=== PATIENT | female | born 1935 | race Caucasian/White ===

== ENCOUNTER 2017-04-22 12:45 | Outpatient (CLI) | payer MEDICARE, OTHER | END 2017-04-22 12:46 | disposition home or self-care (01) | LOC: DI 12:45 | PROVIDERS: ATTEND Internal Medicine | DX: R94.31 Abnormal electrocardiogram [ECG] [EKG] (principal) | CPT/HCPCS: 93306 ==

== ENCOUNTER 2017-04-24 12:45 | Outpatient (CLI) | payer MEDICARE, OTHER ==
--- NOTE | 2017-04-24 16:23 | DEXA Report ---
DEXA SCAN: 04/24/2017 CLINICAL INDICATION: Postmenopausal. TECHNIQUE: Dual energy x-ray absorptiometry (DXA) was performed on a Motorpaneer system. Regions measured are the AP spine, femoral neck, and, if needed, forearm. COMPARISON: None. In accordance with the International Society for Clinical Densitometry (ISCD) guidelines, data from previous exams may be reanalyzed using current recommendations andtechniques. This is done to allow a more accurate basis for comparison with the current study. FINDINGS: The data for the lumbar spine is as follows: REGION BMD (g/cm/cm) T-SCORE Z-SCORE L1 1.110 -0.2 1.4 L2 1.343 1.2 2.8 L3 1.491 2.4 4.0 L4 1.405 1.7 3.3 TOTAL 1.352 1.4 3.0 NOTE: All evaluable vertebrae are used for classification. The data for the hip is as follows: REGION BMD (g/cm/cm) T-SCORE Z-SCORE Neck 0.983 -0.4 1.6 TOTAL 0.984 -0.2 1.7 NOTE: The femoral neck or total proximal femur, whichever is lowest, is used for classification. IMPRESSION THE WHO CLASSIFICATION BASED ON THE INTERNATIONAL REFERENCE STANDARD IS NORMAL. THE FRACTURE RISK IS NOT INCREASED. RECOMMENDATION: Patients with diagnosis of osteoporosis or osteopenia should have regular bone mineral density assessment. For those eligible for Medicare, routine testing is allowed once every 2 years. Testing frequency can be increased for patients who have rapidly progressing disease or for those who are receiving medical therapy to restore bone mass. COMMENT: World Health Organization (WHO) definitions for osteoporosis and osteopenia: NORMAL BMD: T-score at 1.0 or higher, fracture risk is low. OSTEOPENIA BMD: T-score between 1.0 and -2.5, fracture risk is increased. OSTEOPOROSIS BMD: T-score at 2.5 or lower, fracture risk high. National Osteoporosis Foundation recommends: 1. Obtain adequate dietary calcium (at least 1200 mg per day) and vitamin D (400 -800 international units per day). 2. Participate, as appropriate, in regular weightbearing and muscle- strengthening exercise. 3. Avoid tobacco use and reduce alcohol and caffeine intake. 4. For more detailed information see the website at www.NOF.org. TD: 04/24/2017 16:54 MTDMed
== END 2017-04-24 12:46 | disposition home or self-care (01) ==
LOC: DI 12:45
PROVIDERS: ATTEND Internal Medicine
DX: M81.0 Age-related osteoporosis without current pathological fracture (principal)
CPT/HCPCS: 77080

== ENCOUNTER 2017-04-24 12:46 | Outpatient (CLI) | payer MEDICARE, OTHER ==
--- NOTE | 2017-04-25 15:59 | Mammography Report ---
DATE OF SERVICE: 04/24/2017 DIGITAL SCREENING MAMMOGRAM: 04/24/2017 CLINICAL INDICATION: An 81-year-old for screening. COMPARISON: 05/2014, 01/2013, 12/2011, 11/2010. TECHNIQUE: Routine CC and MLO projections were obtained of the breasts. FINDINGS: Scattered fibroglandular tissue is present within the breasts. There are no dominant masses, suspicious microcalcifications, or secondary signs of malignancy. In comparison to the previous studies, there are no significant changes. ASSESSMENT: NO MAMMOGRAPHIC EVIDENCE OF MALIGNANCY. NO SIGNIFICANT INTERVAL CHANGES. RECOMMENDATION: Screening mammography is recommended annually. BIRADS category 1 - negative. STANDARD QUALIFYING STATEMENTS: 1. This examination was reviewed with the aid of Computed-Aided Detection (CAD). 2. A negative or benign imaging report should not delay biopsy if clinically suspicious findings are present. Consider surgical consultation if warranted. More than 5% of cancers are not identified by imaging. 3. Dense breasts may obscure an underlying neoplasm. TD: 04/25/2017 15:58
== END 2017-04-24 12:47 | disposition home or self-care (01) ==
LOC: DI 12:46
PROVIDERS: ATTEND Internal Medicine
DX: Z12.31 Encounter for screening mammogram for malignant neoplasm of breast (principal)
CPT/HCPCS: 77067

== ENCOUNTER 2018-01-01 15:08 | Outpatient (CLI) | payer MEDICARE, OTHER ==
--- NOTE | 2018-01-01 16:14 | XRAY Report ---
Reason: COUGH Procedure Date: 01/01/2018 Accession Number: [id number] / [id number] Procedure: XR - Chest 2 View X-Ray CPT Code: 25161 FULL RESULT: EXAM: CHEST RADIOGRAPHY EXAM DATE: 01/01/2018 03:23 PM. CLINICAL HISTORY: Cough. COMPARISON: Chest 1 view 04/04/2017 11:00 AM. TECHNIQUE: 2 views. FINDINGS: Increased interstitial pulmonary markings compared to 04/04/2017. The cardiomediastinal silhouette is stable. There is no sizable pleural effusion or pneumothorax. There is no lobar consolidation. IMPRESSION: Increased interstitial markings in the setting of known lung disease. No definite superimposed lobar pneumonia. RADIA
== END 2018-01-01 15:09 | disposition home or self-care (01) ==
LOC: DI 15:08
PROVIDERS: ATTEND Internal Medicine
DX: J84.9 Interstitial pulmonary disease, unspecified (principal)
CPT/HCPCS: 71046

== ENCOUNTER 2019-07-24 19:39 | Outpatient (CLI) | payer MEDICARE, OTHER | END 2019-07-24 19:40 | disposition short-term general hospital (02) | LOC: EMS 19:39 | PROVIDERS: ATTEND Surgery | DX: M25.552 Pain in left hip (principal); M25.512 Pain in left shoulder; M25.511 Pain in right shoulder; W10.9XXA Fall (on) (from) unspecified stairs and steps, initial encounter; Y92.009 Unspecified place in unspecified non-institutional (private) residence as the place of occurrence of the external cause | CPT/HCPCS: A0425; A0429 ==

== ENCOUNTER 2019-11-27 13:49 | Outpatient (CLI) | payer MEDICARE, OTHER ==
[2019-11-27 20:07] LABS: DIGOXIN < 0.2 ng/mL
== END 2019-11-27 13:50 | disposition home or self-care (01) ==
LOC: LAB.S 13:49
PROVIDERS: ATTEND Internal Medicine Cardiovascular Disease
DX: I48.21 Permanent atrial fibrillation (principal); F51.5 Nightmare disorder
CPT/HCPCS: 36415; 80162

== ENCOUNTER 2021-03-15 16:50 | Emergency (ER) | payer MEDICARE, OTHER ==
[2021-03-15] MEDS ORDERED: VERAPAMIL 5 MG/2 ML VIAL IVP STA (17:20)
--- NOTE | 2021-03-15 17:20 | ED Physician Documentation ---
History of Present Illness - Stated complaint Stated Complaint: BLEEDING HEMMOROIDS - Chief complaint Chief Complaint: General - History obtained from History obtained from: Patient - Additonal information Additional information: This is an 85-year-old woman with complicated medical history including but not limited to pulmonary fibrosis, hemorrhoids, atrial fibrillation on. She has a history a couple of years ago of needing transfusion after syncopized in due to blood loss related to hemorrhoid. Her whizzer has advised her against any operative intervention on her hemorrhoids because of comorbidities and stroke risk if she came off of her DOAC. She has had bleeding from her hemorrhoid only when she has a bowel movement for last 3 weeks and feels fatigued but not dizzy. 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 - Present Medications Home Medications: Ambulatory Orders Medication Instructions Recorded Confirmed Levothyroxine [Synthroid] 150 mcg PO QDAC 11/15/15 08/21/19 Omeprazole 20 mg PO BID 11/15/15 08/21/19 Losartan [Cozaar] 50 mg PO BID 04/04/17 08/21/19 Apixaban [Eliquis] 5 mg ORAL DAILY 08/21/19 08/21/19 Citalopram [CeleXA] 10 mg ORAL DAILY 08/21/19 08/21/19 Digoxin 125 mcg PO DAILY 08/21/19 08/21/19 LORazepam [Lorazepam] 0.5 mg ORAL DAILY PM 08/21/19 08/21/19 Nintedanib Esylate [Ofev] 150 mg ORAL BID 08/21/19 08/21/19 Sildenafil Citrate 20 mg ORAL TID 08/21/19 08/21/19 Phenylephrine HCl/Witch Soledad 1 appful [place] QID #2 unit 03/15/21 [Preparation H Cooling Gel] - Allergies Allergies/Adverse Reactions: Allergies Allergy/AdvReac Type Severity Reaction Status Date / Time Sulfa (Sulfonamide Allergy Unknown Verified 03/15/21 16:57 Antibiotics) diltiazem [From Cartia XT] AdvReac Itching Verified 03/15/21 16:57 ephedrine AdvReac Unknown Verified 03/15/21 16:57 Ephedrine Analogues AdvReac Unknown Verified 03/15/21 16:57 metoprolol AdvReac Anxiety Verified 03/15/21 16:57 - Social History Does the pt smoke?: No Smoking Status: Never smoker Does the pt drink ETOH?: No Does the pt have substance abuse?: No PD ED PE NORMAL - Vitals Vital signs reviewed: Yes - General General: Alert and oriented X 3, No acute distress - Neck Neck: No bony TTP - Cardiac Cardiac: Other (Rapid and irregular) - Respiratory Respiratory: No respiratory distress - Abdomen Abdomen: Normal bowel sounds, Soft, Non tender - Rectal Rectal: Other (On her left side there is a nonthrombosed hemorrhoid with ulceration and sequela of recent active bleeding but no current active bleeding) - Back Back: No CVA TTP, No spinal TTP - Derm Derm: Normal color, Warm and dry - Extremities Extremities: No edema, No calf tenderness / cord - Neuro Neuro: Alert and oriented X 3, Normal speech Results - Vitals Vitals: Vital Signs - 24 hr 03/15/21 03/15/21 03/15/21 16:57 17:28 17:36 Temperature 36.7 C Heart Rate 110 H 111 H 82 Respiratory 20 20 14 Rate Blood Pressure 112/73 98/64 101/57 L O2 Saturation 92 96 95 Oxygen O2 Source Room air - EKG (time done) 1729 Rate: Rate (enter#) (87) Rhythm: Other (Some sinus beats mixed with A. fib) [place]: Normal Intervals: Normal PA Ischemia: Normal ST segments - Labs Labs: Laboratory Tests 03/15/21 03/15/21 03/15/21 17:14 17:14 17:14 WBC 8.4 RBC 3.74 L Hgb 11.7 L Hct 36.3 L MCV 97.1 MCH 31.3 H MCHC 32.2 RDW 14.9 Plt Count 349 MPV 9.7 Neut # (Auto) 6.0 Lymph # (Auto) 1.5 [place] # (Auto) 0.7 Eos # (Auto) 0.1 Baso # (Auto) 0.0 Absolute Nucleated RBC 0.00 Nucleated RBC % 0.0 Sodium 132 L Potassium 3.8 Chloride 97 L Carbon Dioxide 27 Anion Gap 8.0 BUN 19 Creatinine 0.7 Estimated GFR (MDRD) 80 L Glucose 143 H Calcium 9.0 Digoxin < 0.2 PD MEDICAL DECISION MAKING - ED course ED course: Is an 85-year-old woman with multiple comorbidities who presents with bleeding hemorrhoids. She is also found to be in A. fib with RVR. After the administration of 2.5 mg of IV verapamil she was rate controlled. This is a edgar 85-year-old woman with multiple comorbidities who presents with symptomatic bleeding hemorrhoids. Treatment options are somewhat limited by her comorbidities but thankfully her hemoglobin is only a touch low and well above the transfusion threshold. And she is eager for discharge. Departure - Departure Disposition: 01 Home, Self Care Clinical Impression: Atrial fibrillation with RVR, Bleeding hemorrhoids Condition: Good Record reviewed to determine appropriate education?: Yes Instructions: ED Hematochezia Stable Prescriptions: Phenylephrine HCl/Witch Soledad [Preparation H Cooling Gel] 1 appful [place] QID #2 unit Comments: Return if you worsen, or start to feel dizzy or weak. Follow-up with your primary care physician, next billable appointment. Take an [id number] stool softener or Citrucel to keep your stools very soft.
[2021-03-15 17:25] LABS: BASOPHILS % (AUTO) 0.4 %; EOSINOPHILS # (AUTO) 0.1 10^3/uL (0.0-0.7); EOSINOPHILS % (AUTO) 0.8 %; HCT - HEMATOCRIT 36.3 % (37.0-47.0); HGB - HEMOGLOBIN 11.7 g/dL (12.0-16.0); LYMPHOCYTES # (AUTO) 1.5 10^3/uL (1.5-3.5); LYMPHOCYTES % (AUTO) 18.2 %; MEAN CORPUSCULAR HEMOGLOBIN 31.3 pg (27.0-31.0); MEAN CORPUSCULAR HGB CONC 32.2 g/dL (32.0-36.0); MEAN CORPUSCULAR VOLUME 97.1 fL (81.0-99.0); MEAN PLATELET VOLUME 9.7 fL (7.9-10.8); MONOCYTES # (AUTO) 0.7 10^3/uL (0.0-1.0); MONOCYTES % (AUTO) 8.8 %; NEUTROPHILS % (AUTO) 71.7 %; PLT - PLATELET COUNT 349 10^3/uL (130-450); RED BLOOD COUNT 3.74 10^6/uL (4.20-5.40); RED CELL DISTRIBUTION WIDTH 14.9 % (12.0-15.0); WHITE BLOOD COUNT 8.4 x10^3/uL (4.8-10.8)
[2021-03-15 17:36] LABS: CREATININE 0.7 mg/dL (0.4-1.0); POTASSIUM 3.8 mmol/L (3.5-5.0)
[2021-03-15 17:53] LABS: DIGOXIN < 0.2 ng/mL
[2021-03-15 18:13] VITALS: BP 117/63
== END 2021-03-15 18:17 | disposition home or self-care (01) ==
LOC: ED 16:50
DX: K64.9 Unspecified hemorrhoids (principal); I48.20 Chronic atrial fibrillation, unspecified; Z79.01 Long term (current) use of anticoagulants; I10 Essential (primary) hypertension; J84.10 Pulmonary fibrosis, unspecified
CPT/HCPCS: 36415; 80048; 80162; 85025; 86850; 86900; 86901; 93005; 96374; 99283

== ENCOUNTER 2021-05-05 14:50 | Outpatient (CLI) | payer MEDICARE, OTHER ==
--- NOTE | 2021-05-05 16:17 | XRAY Report ---
PROCEDURE: Chest 2 View X-Ray INDICATIONS: XRAY TECHNIQUE: 2 view(s) of the chest. COMPARISON: Multiple prior chest radiographs FINDINGS: Surgical changes and devices: None. Lungs and pleura: No pleural effusions or pneumothorax. Diffusely increased interstitial markings in both lungs with a peripheral and basilar predominance and fibrotic appearance, similar to the prior study. No acute focal airspace opacity superimposed. Mediastinum: Mediastinal contours are normal. Heart size is normal. Bones and chest wall: No suspicious bony abnormalities. Soft tissues appear unremarkable. IMPRESSION: Fibrotic interstitial changes. No superimposed acute process identified. Reviewed by: Duglas Infante MD on 05/05/2021 4:16 PM PST Approved by: Duglas Infante MD on 05/05/2021 4:16 PM PST Station ID: [id number]
== END 2021-05-05 14:51 | disposition home or self-care (01) ==
LOC: DI.S 14:50
PROVIDERS: ATTEND Nurse Practitioner Family
DX: R05.1 Acute cough (principal); R91.8 Other nonspecific abnormal finding of lung field

== ENCOUNTER 2021-06-10 20:03 | Outpatient (CLI) | payer MEDICARE, OTHER | END 2021-06-10 20:04 | disposition critical access hospital (66) | LOC: EMS 20:03 | DX: S00.31XA Abrasion of nose, initial encounter (principal); S00.01XA Abrasion of scalp, initial encounter; W18.30XA Fall on same level, unspecified, initial encounter; Y92.009 Unspecified place in unspecified non-institutional (private) residence as the place of occurrence of the external cause; Z79.01 Long term (current) use of anticoagulants | CPT/HCPCS: A0425; A0429 ==

== ENCOUNTER 2021-06-10 20:27 | Emergency (ER) | payer MEDICARE, OTHER ==
--- NOTE | 2021-06-10 20:35 | ED Physician Documentation ---
History of Present Illness - Stated complaint Stated Complaint: GLF, AMS - Additonal information Additional information: 85-year-old female presents emergency department for evaluation of altered mental status after a fall. This was unwitnessed at home and patient does not remember the events. Her family found her and sat her up in the chair. However they felt that after while she was more confused than usual". She does have a history of mild dementia. History also includes A. fib with RVR anticoagulated on Eliquis as well as pulmonary fibrosis. Patient reports very well-appearing. As she is here as a modified trauma with a soft collar in place. She does not appear to have any speech deficits slurred speech facial droop or focal motor weakness. 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 - Present Medications Home Medications: Ambulatory Orders Medication Instructions Recorded Confirmed Levothyroxine [Synthroid] 150 mcg PO QDAC 11/15/15 08/21/19 Omeprazole 20 mg PO BID 11/15/15 08/21/19 Losartan [Cozaar] 50 mg PO BID 04/04/17 08/21/19 Apixaban [Eliquis] 5 mg ORAL DAILY 08/21/19 08/21/19 Citalopram [CeleXA] 10 mg ORAL DAILY 08/21/19 08/21/19 Digoxin 125 mcg PO DAILY 08/21/19 08/21/19 LORazepam [Lorazepam] 0.5 mg ORAL DAILY PM 08/21/19 08/21/19 Nintedanib Esylate [Ofev] 150 mg ORAL BID 08/21/19 08/21/19 Sildenafil Citrate 20 mg ORAL TID 08/21/19 08/21/19 Phenylephrine HCl/Witch Soledad 1 appful [place] QID #2 unit 03/15/21 [Preparation H Cooling Gel] Cefpodoxime Proxetil [Vantin] 100 mg PO Q12H #14 tablet 06/10/21 - Allergies Allergies/Adverse Reactions: Allergies Allergy/AdvReac Type Severity Reaction Status Date / Time Sulfa (Sulfonamide Allergy Unknown Verified 06/10/21 20:42 Antibiotics) diltiazem [From Cartia XT] AdvReac Itching Verified 06/10/21 20:42 ephedrine AdvReac Unknown Verified 06/10/21 20:42 Ephedrine Analogues AdvReac Unknown Verified 06/10/21 20:42 metoprolol AdvReac Anxiety Verified 06/10/21 20:42 - Social History Does the pt smoke?: No Smoking Status: Never smoker Does the pt drink ETOH?: No Does the pt have substance abuse?: No PD ED PE NORMAL - General General: Alert and oriented X 3, No acute distress, Well developed/nourished - HEENT HEENT: Atraumatic, Ears normal, Moist mucous membranes, Pharynx benign - Neck Neck: Supple, no meningeal sign, No JVD - Cardiac Cardiac: Strong equal pulses. No: RRR (Irregularly irregular), No murmur - Respiratory Respiratory: No respiratory distress, Clear bilaterally - Abdomen Abdomen: Normal bowel sounds, Soft, Non tender - Back Back: No CVA TTP, No spinal TTP - Derm Derm: Normal color, Warm and dry, No rash - Extremities Extremities: No deformity, No tenderness to palpate, Normal ROM s pain - Neuro Neuro: Alert and oriented X 3, set key driver 2-12 intact, No motor deficit Eye Opening: Spontaneous Motor: Obeys Commands Verbal: Oriented GCS Score: 15 - Psych Psych: Normal mood Results - Vitals Vitals: Vital Signs - 24 hr 06/10/21 06/10/21 06/10/21 20:27 21:10 21:32 Temperature 36.3 C L Heart Rate 63 62 69 Respiratory 16 16 24 Rate Blood Pressure 142/97 H 153/80 H 137/84 H O2 Saturation 94 94 94 06/10/21 21:44 Temperature Heart Rate 64 Respiratory 17 Rate Blood Pressure 153/80 H O2 Saturation 94 Oxygen O2 Source Room air - EKG (time done) 2034 Rate: Rate (enter#) (63) Rhythm: NSR Intervals: Prolonged [place], Prolonged QT QRS: LVH Compare to prior EKG: Unchanged from prior EKG, Changed from prior EKG (mildly longer qtc otherwise no change) Computer interpretation: Agree with computer - Labs Labs: Laboratory Tests 06/10/21 06/10/2106/10/22 20:34 20:34 20:34 WBC 5.9 RBC 3.95 L Hgb 12.2 Hct 37.2 MCV 94.2 MCH 30.9 MCHC 32.8 RDW 15.6 H Plt Count 324 MPV 9.6 Neut # (Auto) 3.3 Lymph # (Auto) 1.6 [place] # (Auto) 0.8 Eos # (Auto) 0.3 Baso # (Auto) 0.0 Absolute Nucleated RBC 0.00 Nucleated RBC % 0.0 Sodium 139 Potassium 3.7 Chloride 101 Carbon Dioxide 28 Anion Gap 10.0 BUN 12 Creatinine 0.6 Estimated GFR (MDRD) 95 Glucose 90 Calcium 9.3 Total Bilirubin 0.3 AST 21 ALT 16 Alkaline Phosphatase 74 Troponin I High Sens 12.7 Total Protein 7.1 Albumin 3.4 Globulin 3.7 Albumin/Globulin Ratio 0.9 L Lipase 22 Urine Color Urine Clarity Urine pH Ur Specific Rien[place] Urine Protein Urine Glucose (UA) Urine Ketones Urine Occult Blood Urine Nitrite Urine Bilirubin Urine Urobilinogen Ur Leukocyte Esterase Urine RBC Urine WBC Ur Squamous Epith Cells Urine Bacteria Ur Microscopic Review Urine Culture Comments 06/10/21 21:05 WBC RBC Hgb Hct MCV MCH MCHC RDW Plt Count MPV Neut # (Auto) Lymph # (Auto) Park # (Auto) Eos # (Auto) Baso # (Auto) Absolute Nucleated RBC Nucleated RBC % Sodium Potassium Chloride Carbon Dioxide Anion Gap BUN Creatinine Estimated GFR (MDRD) Glucose Calcium Total Bilirubin AST ALT Alkaline Phosphatase Troponin I High Sens Total Protein Albumin Globulin Albumin/Globulin Ratio Lipase Urine Color YELLOW Urine Clarity CLEAR Urine pH 5.5 Ur Specific [place] <=1.005 Urine Protein NEGATIVE Urine Glucose (UA) NEGATIVE Urine Ketones NEGATIVE Urine Occult Blood NEGATIVE Urine Nitrite POSITIVE H Urine Bilirubin NEGATIVE Urine Urobilinogen 0.2 (NORMAL) Ur Leukocyte Esterase TRACE H Urine RBC 0-5 Urine WBC 6-10 H Ur Squamous Epith Cells RARE Squamous Urine Bacteria Moderate H Ur Microscopic Review INDICATED Urine Culture Comments INDICATED - Rads (name of study) CT head Radiology: Final report received (No acute intracranial process) cervical spine Radiology: Final report received (Moderately severe degenerative changes along the mid cervical spine expected for age. No trauma found. Emphysematous changes noted at the lung apices) cxr Radiology: Final report received (Focal pneumonia is not seen. Severe COPD and chronic interstitial lung disease is present.) PD MEDICAL DECISION MAKING - ED course Complexity details: reviewed results, re-evaluated patient, considered differential, d/w patient, d/w family ED course: This is a well-appearing 85-year-old female that presents as a modified trauma after an unwitnessed fall at home. She has a history of atrial fib and is on Eliquis. The family initially felt that she was well but felt she became somewhat confused over the course of the day thus she comes into the ER. On presentation she has no obvious focal neuro deficits. No slurred speech. Her NIHSS is 0. It is not clear whether she had a mechanical fall or whether she syncopized therefore screening labs and EKG were obtained. No worrisome findings with regards to screening labs. Negative troponin. Chest x-ray is consistent with her history of pulmonary fibrosis. CT of the head shows no acute bleeding or bruising events. Cervical spine shows significant degenerative changes but no acute fractures. Her urine however is consistent with infection. I discussed this finding with the patient and her daughter. She has had more urinary frequency over the last few days. And this infection may contribute to briefly altered mentation therefore we will send prescription for antibiotics to the pharmacy. Patient and her daughter are feeling much better and feel ready for discharge home. Emergent return precautions discussed. Departure - Departure Disposition: 01 Home, Self Care Clinical Impression: Fall from ground level, Anticoagulated UTI (urinary tract infection) Qualifiers: Urinary tract infection type: acute cystitis Hematuria presence: without hematuria Qualified Code(s): N30.00 - Acute cystitis without hematuria Condition: Stable Record reviewed to determine appropriate education?: Yes Instructions: ED Bladder Infec Cystitis Female Prescriptions: Cefpodoxime Proxetil [Vantin] 100 mg PO Q12H #14 tablet Comments: Belkis you were seen today in the emergency department after an unwitnessed fall at home. We are not certain whether you tripped or whether you fainted. The CT of your head and neck do not show any broken bones bruises or bleeding. The x-ray of your chest does not show any fractured ribs. Your screening labs all look fairly normal with the exception of a urinary tract infection. This could account for your altered mental status earlier in the day. A prescription for Vantin and antibiotic has been sent to the [facility] in [place]. Please take twice daily for the next week. I recommend you discuss this ED visit with your primary care provider. If at any point you have another fall, you develop chest pain, have shortness of air or have any lapses in consciousness then please return immediately to the ER for a second evaluation. NIHSS - Time Time: 20:00 - Level of Consciousness Level of consciousness: (0) Alert, Keenly responsive LOC Questions: (0) Answers both Q's correct - Visual Visual: (0) No loss - Facial Palsy Facial Palsy: (0) Normal, symmetrical movement - Motor Arms (both separate) Motor Arm (right): (0) No drift Motor Arm (left): (0) No drift - Motor Legs (both separate) Motor Leg (right): (0) No drift Motor Leg (left): (0) No drift - Limb Ataxia Limb Ataxia: (0) Absent - Sensory Sensory: (0) Normal - Best Language Best Language: (0) No aphasia - Dysarthria Dysarthria: (0) Normal - Extinction and Inattention (formally neg Extinction and inattention: (0) No abnormality
[2021-06-10 20:42] LABS: BASOPHILS % (AUTO) 0.5 %; EOSINOPHILS # (AUTO) 0.3 10^3/uL (0.0-0.7); EOSINOPHILS % (AUTO) 4.2 %; HCT - HEMATOCRIT 37.2 % (37.0-47.0); HGB - HEMOGLOBIN 12.2 g/dL (12.0-16.0); LYMPHOCYTES # (AUTO) 1.6 10^3/uL (1.5-3.5); LYMPHOCYTES % (AUTO) 26.4 %; MEAN CORPUSCULAR HEMOGLOBIN 30.9 pg (27.0-31.0); MEAN CORPUSCULAR HGB CONC 32.8 g/dL (32.0-36.0); MEAN CORPUSCULAR VOLUME 94.2 fL (81.0-99.0); MEAN PLATELET VOLUME 9.6 fL (7.9-10.8); MONOCYTES # (AUTO) 0.8 10^3/uL (0.0-1.0); MONOCYTES % (AUTO) 12.8 %; NEUTROPHILS # (AUTO) 3.3 10^3/uL (1.5-6.6); NEUTROPHILS % (AUTO) 55.9 %; PLT - PLATELET COUNT 324 10^3/uL (130-450); RED BLOOD COUNT 3.95 10^6/uL (4.20-5.40); RED CELL DISTRIBUTION WIDTH 15.6 % (12.0-15.0); WHITE BLOOD COUNT 5.9 x10^3/uL (4.8-10.8)
[2021-06-10 21:03] LABS: ALBUMIN 3.4 g/dL (3.2-5.5); ALBUMIN/GLOBULIN RATIO 0.9 (1.0-2.2); BILIRUBIN,TOTAL 0.3 mg/dL (0.2-1.0); CALCIUM 9.3 mg/dL (8.5-10.3); CREATININE 0.6 mg/dL (0.4-1.0); POTASSIUM 3.7 mmol/L (3.5-5.0); TOTAL PROTEIN 7.1 g/dL (6.7-8.2)
[2021-06-10 21:12] LABS: BILIRUBIN,URINE NEGATIVE (NEGATIVE); CLARITY,URINE CLEAR (CLEAR); GLUCOSE, URINE (UA) NEGATIVE (NEGATIVE); KETONES,URINE (UA) NEGATIVE (NEGATIVE); LEUKOCYTE ESTERASE, URINE TRACE (NEGATIVE); NITRITE,URINE POSITIVE (NEGATIVE); OCCULT BLOOD,URINE NEGATIVE (NEGATIVE); PH,URINE 5.5 PH (5.0-7.5); PROTEIN,URINE NEGATIVE (NEGATIVE); UROBILINOGEN,URINE 0.2 (NORMAL) E.U./dL (NORMAL)
--- NOTE | 2021-06-10 21:18 | CT Report ---
PROCEDURE: CERVICAL SPINE WO INDICATIONS: GLF; anticoagulated TECHNIQUE: Noncontrast 3 mm thick sections acquired from the skull base to the T4 level. Sagittal and coronal r eformats were then constructed. For radiation dose reduction, the following was used: automated exp osure control, adjustment of mA and/or kV according to patient size. COMPARISON: Head CT same day.. FINDINGS: Image quality: Excellent. Bones: No fractures or dislocations. Visualized superior ribs are intact. Soft tissues: Prevertebral soft tissues are normal in thickness. No paravertebral hematomas. No ap ical pneumothoraces. Emphysematous change at the apices. IMPRESSION: Emphysematous change noted at the lung apices. Moderately severe degenerative changes along the mid c ervical spine, expected for age. No trauma found. Reviewed by: Oscar Clements MD on 06/10/2021 9:17 PM PDT Approved by: Oscar Clements MD on 06/10/2021 9:17 PM PDT Station ID: [id number]
--- NOTE | 2021-06-10 21:19 | CT Report ---
PROCEDURE: HEAD WO INDICATIONS: GlF; anticoagulated TECHNIQUE: Noncontrast 4.5 mm thick angled axial sections acquired from the foramen magnum to the vertex. For r adiation dose reduction, the following was used: automated exposure control, adjustment of mA and/or kV according to patient size. COMPARISON: None. FINDINGS: Image quality: Excellent. CSF spaces: Basal cisterns are patent. No extra-axial fluid collections. Ventricles are normal in size and shape. Brain: No midline shift. No intracranial masses or hemorrhage. Randle-white matter interface is norm al. Skull and face: Calvarium and visualized facial bones are intact, without suspicious lesions. Sinuses: Visualized sinuses and mastoids are clear. IMPRESSION: No trauma found. Reviewed by: Oscar Clements MD on 06/10/2021 9:18 PM PDT Approved by: Oscar Clements MD on 06/10/2021 9:18 PM PDT Station ID: [id number]
--- NOTE | 2021-06-10 21:20 | XRAY Report ---
PROCEDURE: Chest 1 View X-Ray INDICATIONS: Chest Pain TECHNIQUE: One view of the chest was acquired. COMPARISON: 05/05/2021 2 view chest FINDINGS: Surgical changes and devices: None. Lungs and pleura: No pleural effusions or pneumothorax. Lungs are abnormal with what appears to be reduced inspiratory volume superimposed on COPD and chronic interstitial lung disease.. Mediastinum: Mediastinal contours appear normal. Heart size is normal. Bones and chest wall: No suspicious bony lesions. Overlying soft tissues appear unremarkable. IMPRESSION: Focal pneumonia is not seen. Severe COPD and chronic interstitial lung disease present, accentuated b y mildly reduced inspiratory volume. No pneumothorax. Reviewed by: Oscar Clements MD on 06/10/2021 9:19 PM PDT Approved by: Oscar Clements MD on 06/10/2021 9:19 PM PDT Station ID: [id number]
[2021-06-10 21:25] LABS: BACTERIA,URINE Moderate /HPF (None Seen); RBC,URINE 0-5 /HPF (0-5); SQUAMOUS EPITHELIAL CELL,UR RARE Squamous (<= Few)
[2021-06-10 22:15] VITALS: BP 129/85
== END 2021-06-10 22:15 | disposition home or self-care (01) ==
LOC: EDUNIT# → ED 20:27
DX: Z04.3 Encounter for examination and observation following other accident (principal); N30.00 Acute cystitis without hematuria; I48.91 Unspecified atrial fibrillation; Z79.01 Long term (current) use of anticoagulants
CPT/HCPCS: 36415; 80053; 81001; 81003; 83690; 84484; 85025; 87077; 87086; 87181; 93005; 99283; 99284

== ENCOUNTER 2021-07-25 15:01 | Outpatient (CLI) | payer MEDICARE, OTHER ==
[2021-07-25 20:06] LABS: BASOPHILS % (AUTO) 0.5 %; EOSINOPHILS # (AUTO) 0.2 10^3/uL (0.0-0.7); EOSINOPHILS % (AUTO) 3.4 %; HCT - HEMATOCRIT 32.1 % (37.0-47.0); HGB - HEMOGLOBIN 9.8 g/dL (12.0-16.0); LYMPHOCYTES # (AUTO) 1.2 10^3/uL (1.5-3.5); LYMPHOCYTES % (AUTO) 18.4 %; MEAN CORPUSCULAR HEMOGLOBIN 29.2 pg (27.0-31.0); MEAN CORPUSCULAR HGB CONC 30.5 g/dL (32.0-36.0); MEAN CORPUSCULAR VOLUME 95.5 fL (81.0-99.0); MEAN PLATELET VOLUME 10.2 fL (7.9-10.8); MONOCYTES # (AUTO) 0.8 10^3/uL (0.0-1.0); MONOCYTES % (AUTO) 11.6 %; NEUTROPHILS # (AUTO) 4.3 10^3/uL (1.5-6.6); NEUTROPHILS % (AUTO) 65.8 %; PLT - PLATELET COUNT 411 10^3/uL (130-450); RED BLOOD COUNT 3.36 10^6/uL (4.20-5.40); RED CELL DISTRIBUTION WIDTH 15.2 % (12.0-15.0); WHITE BLOOD COUNT 6.5 x10^3/uL (4.8-10.8)
[2021-07-25 20:17] LABS: ALBUMIN 3.4 g/dL (3.2-5.5); ALBUMIN/GLOBULIN RATIO 0.9 (1.0-2.2); BILIRUBIN,TOTAL 0.4 mg/dL (0.2-1.0); CALCIUM 9.2 mg/dL (8.5-10.3); CREATININE 0.5 mg/dL (0.4-1.0); TOTAL PROTEIN 7.3 g/dL (6.7-8.2)
[2021-07-25 20:33] LABS: THYROID STIMULATING HORMONE 0.54 uIU/mL (0.34-5.60)
== END 2021-07-25 15:02 | disposition home or self-care (01) ==
LOC: LAB.S 15:01
PROVIDERS: ATTEND Nurse Practitioner Family
DX: E03.9 Hypothyroidism, unspecified (principal)
CPT/HCPCS: 36415; 80053; 84443; 85025

== ENCOUNTER 2022-08-20 05:30 | Outpatient (CLI) | payer MEDICARE, OTHER | END 2022-08-20 05:31 | disposition critical access hospital (66) | LOC: EMS 05:30 | DX: R06.02 Shortness of breath (principal) | CPT/HCPCS: A0425; A0429 ==

== ENCOUNTER 2022-08-20 05:56 | Emergency (ER) | payer MEDICARE, OTHER ==
[2022-08-20] MEDS ORDERED: IPRATROPIUM/ALBUTEROL 3 ML NEB INH STA (06:03)
--- NOTE | 2022-08-20 06:06 | ED Physician Documentation ---
History of Present Illness - Stated complaint Stated Complaint: SOA - History obtained from History obtained from: Patient, EMS - Additonal information Additional information: The patient is brought to the emergency department by EMS for chief complaint of low pulse ox reading. The patient states she awakened in the night and felt as though she could not breathe well. She looked at her pulse ox and saw that it dipped down in the 70s. The medics state that the patient's family changed out the battery of the pulse ox and is feeling like the Pulsoxymeter was working better after that and the numbers were higher. Medics state they have had the patient on her baseline 4 L of oxygen per nasal cannula and she has been saturating in the mid to upper 90s during the entire transport. The patient states that she felt better after her family bumped her oxygen up to 5 L instead of 4. She denies any recent illness. No fevers or chills, and no cough that is new. She has some chronic edema in her lower extremities around her feet and ankles but otherwise, denies any new swelling. The patient has a history of severe COPD and chronic interstitial lung disease, and is on 4 L of oxygen per nasal cannula [id number] at home. She lives at home with her family. PD PAST MEDICAL HISTORY - Past Medical History Cardiovascular: Hypertension Respiratory: Other (pulmonary fibrosis) Endocrine/Autoimmune: HyPOthyroidism GI: GERD - Past Surgical History Past Surgical History: Yes /ROAD MONKEY: Tubal ligation - Present Medications Home Medications: Ambulatory Orders Medication Instructions Recorded Confirmed Levothyroxine [Synthroid] 150 mcg PO QDAC 11/15/15 06/10/21 Omeprazole 20 mg PO BID 11/15/15 06/10/21 Losartan [Cozaar] 50 mg PO BID 04/04/17 06/10/21 Apixaban [Eliquis] 5 mg ORAL DAILY 08/21/19 06/10/21 Citalopram [CeleXA] 10 mg ORAL DAILY 08/21/19 06/10/21 Digoxin 125 mcg PO DAILY 08/21/19 06/10/21 LORazepam [Lorazepam] 0.5 mg ORAL DAILY PM 08/21/19 06/10/21 Nintedanib Esylate [Ofev] 150 mg ORAL BID 08/21/19 06/10/21 Sildenafil Citrate 20 mg ORAL TID 08/21/19 06/10/21 Phenylephrine HCl/Witch Soledad 1 appful SD QID #2 unit 03/15/21 06/10/21 [Preparation H Cooling Gel] Cefpodoxime Proxetil [Vantin] 100 mg PO Q12H #14 tablet 06/10/21 predniSONE [Deltasone] 10 mg PO [id number] #42 tab 08/20/22 - Allergies Allergies/Adverse Reactions: Allergies Allergy/AdvReac Type Severity Reaction Status Date / Time Sulfa (Sulfonamide Allergy Unknown Verified 08/20/22 06:11 Antibiotics) diltiazem [From Cartia XT] AdvReac Itching Verified 08/20/22 06:11 ephedrine AdvReac Unknown Verified 08/20/22 06:11 Ephedrine Analogues AdvReac Unknown Verified 08/20/22 06:11 metoprolol AdvReac Anxiety Verified 08/20/22 06:11 - Social History Does the pt smoke?: No Smoking Status: Never smoker Does the pt drink ETOH?: No Does the pt have substance abuse?: No PD ED PE NORMAL - Vitals Vital signs reviewed: Yes - General General: Alert and oriented X 3, No acute distress, Well developed/nourished - HEENT HEENT: Atraumatic, PERRL, EOMI, Moist mucous membranes - Neck Neck: Supple, no meningeal sign - Cardiac Cardiac: RRR, No murmur, Strong equal pulses - Respiratory Respiratory: No respiratory distress, Other (Diminished breath sounds bilaterally with mild crackles in the right lower lobe.) - Abdomen Abdomen: Soft, Non tender, Non distended - Derm Derm: Warm and dry, No rash - Extremities Extremities: No deformity, Other (1+ pitting edema bilateral ankles and feet, worse on right.) - Neuro Neuro: Other (Alert and appropriate, grossly intact.) - Psych Psych: Normal mood, Normal affect Results - Vitals Vitals: Oxygen O2 Source Nasal cannula - Rads (name of study) chest XR Relevant Findings:: Final report received, See rad report (worsening of fibrosis/ILD since last study; could also represent some edema or infection--correlate clinically) PD Medical Decision Making - ED course Complexity details: reviewed results, re-evaluated patient, considered differential, d/w patient ED course: The patient was worked up with chest x-ray and treated with a DuoNeb. Her oxygen saturation on arrival was in the lower 90s on her baseline 4 L of oxygen per nasal cannula. The patient reported feeling a bit better after the DuoNeb. Her chest x-ray showed severe fibrosis and COPD and the appearance was a bit worse since her last chest x-ray a year ago. I did not find evidence at this point of an acute process, given that the patient has had no symptoms of infection and no worsening of her lower extremity edema. The patient's lung sounds were mostly clear but just with some poor air movement. And I also suspected that the patient had a very low reserve. I discussed with the daughter that they can bump the oxygen up if needed temporarily, should the patient become short of breath or should she have to get up and about and need to recover afterward. If the patient's oxygen Requirement is consistently higher than her current baseline level, they should follow-up with her rod hanger to determine if there is anything else to be done besides raising the baseline oxygen further. We have discussed the usual indications for return. Departure - Departure Disposition: 01 Home, Self Care Clinical Impression: Severe chronic obstructive pulmonary disease, Interstitial lung disease Condition: Stable Instructions: Disease Interstitial Lung Dx, ED COPD Flare Prescriptions: predniSONE [Deltasone] 10 mg PO [id number] #[id number] tab Comments: Your chest x-ray continues to show severe COPD and chronic interstitial lung disease with scarring. Your oxygen saturations have been reasonable here in the emergency department and have remained in the 90s at your baseline 4 L. You have been given a breathing treatment here. A prescription for a steroid taper has been electronically transmitted to the [facility] in [place]. You should take this as well as any other breathing treatments she would normally do at home. If you begin to run fevers or you notice that your cough is getting progressively worse or you just feel ill, then you should seek medical reevaluation. Discharge Date/Time: 08/20/22 07:42
[2022-08-20] MEDS ORDERED: BENZONATATE 100 MG CAPSULE PO STA (07:00)
[2022-08-20 07:27] VITALS: BP 119/72
--- NOTE | 2022-08-20 09:58 | XRAY Report ---
PROCEDURE: Chest 1 View X-Ray INDICATIONS: chest pain TECHNIQUE: One view of the chest was acquired. COMPARISON: 06/10/2021 FINDINGS: Surgical changes and devices: None. Lungs and pleura: Diffuse coarse reticulation throughout both lungs consistent with known history of pulmonary fibrosis. This has moderately progressed since the prior study and may reflect underlying acute interstitial pneumonitis or edema. No significant pleural effusion or pneumothorax. Mediastinum: Mediastinal contours appear normal. Heart size is normal. Bones and chest wall: No suspicious bony lesions. Overlying soft tissues appear unremarkable. IMPRESSION: 1. Worsening of diffuse interstitial thickening bilaterally may be progression of chronic interstitia l lung disease or superimposed infection or edema. 2. Final interpretation concordant with preliminary report. Reviewed by: Keri Roy MD on 08/20/2022 8:57 AM RENATO Approved by: Keri Roy MD on 08/20/2022 8:57 AM RENATO Station ID: [id number]
== END 2022-08-20 07:42 | disposition home or self-care (01) ==
LOC: EDUNIT# → ED 05:56
DX: J44.9 Chronic obstructive pulmonary disease, unspecified (principal); J84.9 Interstitial pulmonary disease, unspecified; I10 Essential (primary) hypertension; E03.9 Hypothyroidism, unspecified; Z99.81 Dependence on supplemental oxygen; Z79.899 Other long term (current) drug therapy; Z79.01 Long term (current) use of anticoagulants
CPT/HCPCS: 71045; 94640; 99283; 99284; A9270

== ENCOUNTER 2022-09-24 08:00 | Outpatient (CLI) | payer MEDICARE, OTHER ==
[2022-09-24 20:12] LABS: HCT - HEMATOCRIT 37.8 % (37.0-47.0); HGB - HEMOGLOBIN 10.7 g/dL (12.0-16.0); MEAN CORPUSCULAR HEMOGLOBIN 26.8 pg (27.0-31.0); MEAN CORPUSCULAR HGB CONC 28.3 g/dL (32.0-36.0); MEAN CORPUSCULAR VOLUME 94.7 fL (81.0-99.0); MEAN PLATELET VOLUME 10.5 fL (7.9-10.8); RED BLOOD COUNT 3.99 10^6/uL (4.20-5.40); WHITE BLOOD COUNT 9.1 x10^3/uL (4.8-10.8)
== END 2022-09-24 23:59 | disposition home or self-care (01) ==
LOC: LAB.R 08:00
PROVIDERS: ATTEND Internal Medicine Geriatric Medicine
DX: D50.0 Iron deficiency anemia secondary to blood loss (chronic) (principal)
CPT/HCPCS: 85027

== ENCOUNTER 2022-10-08 11:47 | Outpatient (CLI) | payer MEDICARE, OTHER ==
[2022-10-08 11:59] LABS: HGB - HEMOGLOBIN 11.3 g/dL (12.0-16.0); MEAN CORPUSCULAR HEMOGLOBIN 26.2 pg (27.0-31.0); MEAN CORPUSCULAR HGB CONC 29.7 g/dL (32.0-36.0); MEAN PLATELET VOLUME 10.2 fL (7.9-10.8); RED BLOOD COUNT 4.32 10^6/uL (4.20-5.40); RED CELL DISTRIBUTION WIDTH 20.1 % (12.0-15.0); WHITE BLOOD COUNT 6.1 x10^3/uL (4.8-10.8)
[2022-10-08 12:19] LABS: ALBUMIN 2.7 g/dL (3.2-5.5); ALBUMIN/GLOBULIN RATIO 0.8 (1.0-2.2); BILIRUBIN,TOTAL 0.5 mg/dL (0.2-1.0); CREATININE 0.5 mg/dL (0.4-1.0); PHOSPHORUS 3.6 mg/dL (2.5-4.6); POTASSIUM 3.7 mmol/L (3.5-5.0)
== END 2022-10-08 11:48 | disposition home or self-care (01) ==
LOC: LAB.R 11:47
PROVIDERS: ATTEND Internal Medicine Geriatric Medicine
DX: D50.0 Iron deficiency anemia secondary to blood loss (chronic) (principal); R60.9 Edema, unspecified; E87.6 Hypokalemia
CPT/HCPCS: 80053; 80069; 82728; 83540; 84100; 84466; 85027

== ENCOUNTER 2022-10-28 20:48 | Outpatient (CLI) | payer MEDICARE, OTHER | END 2022-10-28 23:59 | disposition EMS.NT | LOC: EMS 20:48 | DX: Z03.89 Encounter for observation for other suspected diseases and conditions ruled out (principal) ==

== ENCOUNTER 2022-12-02 05:42 | Outpatient (CLI) | payer MEDICARE, OTHER | END 2022-12-02 05:43 | disposition critical access hospital (66) | LOC: EMS 05:42 | DX: R53.1 Weakness (principal); R05.9 Cough, unspecified | CPT/HCPCS: A0425; A0429 ==

== ENCOUNTER 2022-12-02 06:11 | Observation (INO) | payer MEDICARE, OTHER ==
[2022-12-02 06:42] LABS: BASOPHILS % (AUTO) 0.4 %; EOSINOPHILS # (AUTO) 0.2 10^3/uL (0.0-0.7); EOSINOPHILS % (AUTO) 3.3 %; HCT - HEMATOCRIT 20.1 % (37.0-47.0); LYMPHOCYTES % (AUTO) 18.4 %; MEAN CORPUSCULAR HEMOGLOBIN 21.5 pg (27.0-31.0); MEAN CORPUSCULAR HGB CONC 26.9 g/dL (32.0-36.0); MEAN CORPUSCULAR VOLUME 80.1 fL (81.0-99.0); MEAN PLATELET VOLUME 11.1 fL (7.9-10.8); MONOCYTES # (AUTO) 0.5 10^3/uL (0.0-1.0); MONOCYTES % (AUTO) 9.8 %; NEUTROPHILS # (AUTO) 3.8 10^3/uL (1.5-6.6); NEUTROPHILS % (AUTO) 67.7 %; NRBC ABSOLUTE COUNT (AUTO) 0.11 x10^3/uL; PLT - PLATELET COUNT 228 10^3/uL (130-450); RED BLOOD COUNT 2.51 10^6/uL (4.20-5.40); RED CELL DISTRIBUTION WIDTH 22.5 % (12.0-15.0); WHITE BLOOD COUNT 5.5 x10^3/uL (4.8-10.8)
[2022-12-02 06:45] LABS: HGB - HEMOGLOBIN 5.4 g/dL (12.0-16.0); SLIDE REVIEW? Indicated
--- NOTE | 2022-12-02 06:50 | ED Physician Documentation ---
History of Present Illness - Stated complaint Stated Complaint: GEN. WEAKNESS/GLF/ W/ NO INJURIES - Chief complaint Chief Complaint: Neuro - History obtained from History obtained from: Patient, Family, EMS - Additonal information Additional information: 86-year-old female with history of pulmonary fibrosis on 5 L O2, A-fib on Eliquis, bleeding hemorrhoid presents by EMS from home for generalized weakness and possible anemia. Patient was attempting to get up from the bed to her recliner when she fell. Daughter called 911 to have the patient brought in for general evaluation. Daughter also mentioned to the paramedics that her mother appeared to be paler than usual and has had several episodes of bleeding from her hemorrhoid over the last several weeks. Patient was due to get a blood draw this week, however she has felt too poorly to go in for a blood draw. Daughter requested that patient's blood levels be checked in the emergency department. On arrival patient denies complaints. She denies pain. Review of Systems Constitutional: denies: Fever, Chills GI: reports: Other (hemorrhoid) Neurologic: reports: Generalized weakness. 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 - Present Medications Home Medications: Ambulatory Orders Medication Instructions Recorded Confirmed Levothyroxine [Synthroid] 150 mcg PO QDAC 11/15/15 12/02/22 Nintedanib Esylate [Ofev] 150 mg ORAL BID 08/21/19 12/02/22 Sildenafil Citrate 20 mg ORAL TID 08/21/19 12/02/22 Phenylephrine HCl/Witch Soledad 1 appful IA QID #2 unit 03/15/21 12/02/22 [Preparation H Cooling Gel] Apixaban [Eliquis] 2.5 mg PO BID 12/02/22 12/02/22 Benzonatate 200 mg PO TID PRN 12/02/22 12/02/22 Citalopram Hydrobromide [Celexa] 20 mg PO DAILY 12/02/22 12/02/22 Gabapentin [Neurontin] 400 mg PO DAILY 12/02/22 12/02/22 Ipratropium Hudson 2 spr NS BID 12/02/22 12/02/22 Montelukast [Singulair] 10 mg PO QPM 12/02/22 12/02/22 Pantoprazole Sodium 1 tab PO BID 12/02/22 12/02/22 Verapamil ER [Calan SA] 120 mg PO DAILY 12/02/22 12/02/22 predniSONE [Deltasone] 10 mg PO DAILY 12/02/22 12/02/22 - Allergies Allergies/Adverse Reactions: Allergies Allergy/AdvReac Type Severity Reaction Status Date / Time Sulfa (Sulfonamide Allergy Unknown Verified 12/02/22 07:05 Antibiotics) diltiazem [From Cartia XT] AdvReac Itching Verified 12/02/22 07:05 ephedrine AdvReac Unknown Verified 12/02/22 07:05 Ephedrine Analogues AdvReac Unknown Verified 12/02/22 07:05 metoprolol AdvReac Anxiety Verified 12/02/22 07:05 - Social History Does the pt smoke?: No Smoking Status: Never smoker Does the pt drink ETOH?: No Does the pt have substance abuse?: No PD ED PE NORMAL - Vitals Vital signs reviewed: Yes - General General: No acute distress, Other (frail, appears chronically unwell) - Cardiac Cardiac: Other (irregularly irregular) - Respiratory Respiratory: No respiratory distress, Other (on supplemental nasal cannula) - Abdomen Abdomen: Soft, Non tender - Female Female : Administrative Project Coordinator present, Other (No gross blood on rectal exam) - Derm Derm: Warm and dry, Other (pale, intact) - Extremities Extremities: No deformity, No tenderness to palpate - Neuro Neuro: shredder tender 2-12 intact, No motor deficit, Normal speech, Other (AOx2) Results - Vitals Vitals: Vital Signs - 24 hr 12/02/22 12/02/22 12/02/22 06:15 08:01 08:15 Temperature 36.5 C 36.4 C L 36.2 C L Heart Rate 93 Heart Rate [ 82 77 Monitoring electrodes] Respiratory 18 18 19 Rate Blood Pressure 114/83 H Blood Pressure 106/72 103/69 [Right Brachial artery] O2 Saturation 100 96 100 If not protocol 4 6 : Oxygen Flow, liters/minute 12/02/22 12/02/22 12/02/22 08:21 09:28 10:19 Temperature 36.2 C L 36.2 C L 36.4 C L Heart Rate Heart Rate [ 78 89 75 Monitoring electrodes] Respiratory 18 17 18 Rate Blood Pressure Blood Pressure 112/75 104/77 112/80 [Right Brachial artery] O2 Saturation 99 100 99 If not protocol 4 4 4 : Oxygen Flow, liters/minute 12/02/22 12/02/22 12/02/22 10:22 10:42 10:46 Temperature 36.1 C L 36.1 C L Heart Rate 88 Heart Rate [ 79 71 Monitoring electrodes] Respiratory 18 20 20 Rate Blood Pressure 116/67 Blood Pressure 119/86 H 113/84 H [Right Brachial artery] O2 Saturation 100 96 100 If not protocol 4 4 4 : Oxygen Flow, liters/minute 12/02/22 11:03 Temperature 36 C L Heart Rate Heart Rate [ 88 Monitoring electrodes] Respiratory 17 Rate Blood Pressure Blood Pressure 122/90 H [Right Brachial artery] O2 Saturation 98 If not protocol 4 : Oxygen Flow, liters/minute Oxygen O2 Source Nasal cannula - Labs Labs: Laboratory Tests 12/02/22 12/02/22 12/02/22 06:36 06:36 06:36 WBC 5.5 RBC 2.51 L Hgb 5.4 L* Hct 20.1 L MCV 80.1 L MCH 21.5 L MCHC 26.9 L RDW 22.5 H Plt Count 228 MPV 11.1 H Neut # (Auto) 3.8 Lymph # (Auto) 1.0 L Ada # (Auto) 0.5 Eos # (Auto) 0.2 Baso # (Auto) 0.0 Absolute Nucleated RBC 0.11 Nucleated RBC % 2.0 Manual Slide Review Indicated WBC Morphology NORMAL APPEARANCE Platelet Estimate NORMAL (130-450,000) Platelet Morphology NORMAL APPEARANCE RBC Morph Micro Appear 1+ STOMATOCYTES Sodium 139 Potassium 3.7 Chloride 103 Carbon Dioxide 31 Anion Gap 5.0 L BUN 28 H Creatinine 0.5 L Estimated GFR (MDRD) 117 Glucose 100 Calcium 9.1 Total Bilirubin 0.6 AST 122 H ALT 106 H Alkaline Phosphatase 88 Total Protein 5.9 L Albumin 3.1 L Globulin 2.8 Albumin/Globulin Ratio 1.1 Blood Type O POSITIVE Antibody Screen NEGATIVE Crossmatch IS Only See Detail PD Medical Decision Making - ED course Complexity details: reviewed old records, reviewed results, re-evaluated patient, considered differential, d/w patient ED course: Generalized weakness and ground-level fall. Patient did appear to be very pale on arrival. Rectal exam shows no gross blood, however daughter arrived shortly after patient arrived by EMS and stated that home health care nurses have reported increasing amounts of blood in stool for the last several days. Hemoglobin 5.4. Type and screen has already been sent to lab. PRBCs ordered for transfusion. Discussion with daughter held at bedside, daughter states that patient has had numerous endoscopies, colonoscopies, and even pill capsule endoscopy and there has been no GI source of bleeding found other than the patient's hemorrhoid. Daughter states that they have elected to forego hemorrhoidectomy due to the pain involved in the procedure. Daughter states that this is happened in the past and patient has improved when taken off of her Eliquis. Care of patient transition to oncoming ER provider pending final radiology read of CT reports. - Critical Care Time(min): 36 Comments: Transfusion PRBCs Time Includes: Direct patient care, Review records, Reassess patient, Document care, Coordinate care, Family consult for tx dec, See progress note Data interpretation: Labs, Pulse ox, Prior EKG, Cardiac output, See progress note Procedures included in critical care time: Blood draw Departure - Departure Disposition: [facility] DC/Xfer Clinical Impression: Anemia requiring transfusions Condition: Serious Discharge Date/Time: 12/02/22 12:15
[2022-12-02 07:00] LABS: ALBUMIN 3.1 g/dL (3.2-5.5); ALBUMIN/GLOBULIN RATIO 1.1 (1.0-2.2); BILIRUBIN,TOTAL 0.6 mg/dL (0.2-1.0); CALCIUM 9.1 mg/dL (8.5-10.3); CREATININE 0.5 mg/dL (0.6-1.3); POTASSIUM 3.7 mmol/L (3.5-4.5); TOTAL PROTEIN 5.9 g/dL (6.4-8.9)
[2022-12-02 07:12] LABS: PLATELET ESTIMATE, MANUAL NORMAL (130-450,000) (NORMAL); PLATELET MORPHOLOGY NORMAL APPEARANCE (NORMAL); WBC MORPHOLOGY (MULTIPLE) NORMAL APPEARANCE (NORMAL)
--- NOTE | 2022-12-02 08:14 | ED Physician Documentation ---
ED Addendum - Addendum Addendum: 12/02/22 08:07 Belkis Malave is an 86-year-old female on Eliquis for atrial fibrillation who has chronically bleeding hemorrhoid and is now requiring transfusion. She has had prior scoping done and the only source for bleeding found has been the hemorrhoid. She has refused surgery. Today she is left in my care at shift change awaiting reports for CT scan of the head and neck prior to admission to the hospital for completion of transfusion and monitoring for further bleeding. The patient has agreed to stop the Eliquis. CT results: CT head; impression: Generalized involutional changes and chronic microvascular changes noted. No acute abnormality identified. CT cervical spine; impression: 1. No acute abnormality cervical spine. 2. Degenerative changes again noted, with particularly prominent canal stenosis at C4-5. 3. New finding prominent pleural effusions and apical lung changes suggestive of pulmonary edema. (history of pulmonary fibrosis, my view of these findings are consistent with pulmonary fibrosis) 12/02/22 08:31 12/02/22 19:13 Impression: symptomatic blood loss anemia Plan: admission for transfusion
--- NOTE | 2022-12-02 10:40 | CT Report ---
PROCEDURE: CT brain without contrast INDICATIONS: GLF TECHNIQUE: Helical axial CT of the brain was obtained without contrast and reformatted in multiple p lanes. Radiation dose reduction was achieved using automated exposure control or adjustment of mA and /or kV according to patient size. COMPARISON: 06/10/2021 FINDINGS: CSF spaces: Ventricles are appropriate in size and position. No hydrocephalus. Basal cisterns unre markable. Brain: No midline shift. No intracranial masses or hemorrhage. Randle-white matter interface is norm al. Moderate atrophy and multifocal white matter chronic ischemic change noted. Skull and face: Calvarium and skull base are unremarkable without suspicious lesion. Sinuses: Visualized sinuses and mastoids are clear. IMPRESSION: Atrophy and chronic ischemic change without intracranial hemorrhage or mass effect. Note: This final report is concordant with the preliminary after-hours interpretation provided by [facility], [facility] Reviewed by: Marvin Ortiz MD on 12/02/2022 9:39 AM RENATO Approved by: Marvin Ortiz MD on 12/02/2022 9:39 AM AKCARMEN Station ID: [id number]
--- NOTE | 2022-12-02 10:50 | CT Report ---
PROCEDURE: CT cervical spine without contrast INDICATIONS: 86-year-old female with trauma, pain. TECHNIQUE: Helical axial CT of the cervical spine was obtained without contrast and reformatted in m ultiple planes. Radiation dose reduction was achieved utilizing automated exposure control or adjus tment of mA and/or kV according to patient size. COMPARISON: 06/10/2021 FINDINGS: Bones: No fractures or dislocations. Visualized superior ribs are intact. Degenerative C4-5 retrol isthesis. Multilevel degenerative disc disease and arthropathy results in grade 1 retrolisthesis at C 4-5 and severe central stenosis. Soft tissues: Moderate bilateral pleural effusions as well as reticular subpleural pattern consistent with probable fibrosis. No Pneumothoraces. Gaseous distention of the upper esophagus IMPRESSION: Stable degenerative disc disease and arthropathy in the mid to lower cervical spine associated with s evere but stable central stenosis at C4-5. No fracture or traumatic subluxation. Moderate bilateral pleural effusions with probable subpleural pulmonary fibrosis Note: This final report is concordant with the preliminary after-hours interpretation provided by [facility], [facility] Reviewed by: Marvin Ortiz MD on 12/02/2022 9:48 AM RENATO Approved by: Marvin Ortiz MD on 12/02/2022 9:48 AM AKCARMEN Station ID: [id number]
[2022-12-02] MEDS ORDERED: ACETAMINOPHEN 325 MG TABLET PO PRN (11:31)
[2022-12-02] MEDS ORDERED: SODIUM CHLORIDE FLUSH 0.9% 10 ML SYRINGE IVP PRN (11:31)
[2022-12-02] MEDS ORDERED: ONDANSETRON 4 MG/2 ML VIAL IVP PRN (11:31)
--- NOTE | 2022-12-02 11:39 | HISTORY & PHYSICAL EXAMINATION ---
Chief Complaint - Chief Complaint Chief Complaint: Fell OOB History of Present Illness - Admitted From Admitted From:: ED - History Obtained From History obtained from: ED provider and pt's daughter (at bedside) - History of Present Illness HPI Comment/Other: This is an 86-year-old female with history of atrial fib on Eliquis, pulmonary fibrosis and pulmonary hypertension on sildenafil and on home oxygen and MORENITA on CPAP, history of recurrent bleeding hemorrhoids and she has refused hemorrhoidectomy, needs repeat transfusions. The patient has had endoscopy and colonoscopy and PillCam eval and the only findings were a bleeding hemorrhoid. She was offered hemorrhoidectomy but has refused this. The daughter said she was only off her Eliquis for 10 days when this occurred in August of this year. She has a Desilverizer and Ekg Monitor Tech at , and has an appointment to see them both in the next few weeks. The patient was getting out of bed last night trying to get into her wheelchair and fell, landing on her rump. She did not lose consciousness. She has in-home 24-7 caregivers who called the daughter Keri (her DPOA), who advised calling EMS for lift assist. Ambulance arrived and vital signs at the scene were blood pressure 128/75, heart rate 105 in A-fib, and she was brought to the ER. Daughter arrived shortly after that and described that her caregivers have reported that there has more blood in her stool recently and the daughter noticed the patient is more pale and for the last 3 days has been more confused and mostly sleeping. Lab testing showed the hemoglobin to be 5.9 and she has been ordered to receive 2 units PRBCs, and 1 has been infused thus far. ER provider has discussed with the pt the need to stop taking Eliquis which the patient agrees. The patient underwent head CT and C-spine CT which did not show any evidence of trauma, there are degenerative changes of the spine and atrophy seen on brain imaging. The ED provider spoke to me about this patient to bring her in on the Hospitalist service and to continue to treat the symptomatic anemia and evaluate causes for the fall. I discussed the patient's CODE BLUE wishes with the daughter and she said her mother wants to be a Full Code. History - Past Medical History Cardiovascular: reports: Hypertension Respiratory: reports: Sleep apnea (On CPAP), Other (Pulmonary fibrosis on Prednisone, Sidenifil and Ofev. 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 She only pivots to go from bed to wheelchair now. This decline occurred from using a walker 3 mos ago and prior to that was independent about 6 months ago. She still feeds herself. She goes to the bathroom by herself. She is a non-smoker and never smoked. She drinks no alcohol. She is in charge of taking her own medications. 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 - Substance History Use: Uses substance without health or social issues: NONE - POLST Patient has POLST: No POLST Status: Full Code Meds/Allgy - Home Medications Home Medications: Ambulatory Orders Medication Instructions Recorded Confirmed Levothyroxine [Synthroid] 150 mcg PO QDAC 11/15/15 12/02/22 Nintedanib Esylate [Ofev] 150 mg ORAL BID 08/21/19 12/02/22 Sildenafil Citrate 20 mg ORAL TID 08/21/19 12/02/22 Phenylephrine HCl/Witch Soledad 1 appful MS QID #2 unit 03/15/21 12/02/22 [Preparation H Cooling Gel] Apixaban [Eliquis] 2.5 mg PO BID 12/02/22 12/02/22 Benzonatate 200 mg PO TID PRN 12/02/22 12/02/22 Citalopram Hydrobromide [Celexa] 20 mg PO DAILY 12/02/22 12/02/22 Gabapentin [Neurontin] 400 mg PO DAILY 12/02/22 12/02/22 Ipratropium [place] 2 spr NS BID 12/02/22 12/02/22 Montelukast [Singulair] 10 mg PO QPM 12/02/22 12/02/22 Pantoprazole Sodium 1 tab PO BID 12/02/22 12/02/22 Verapamil ER [Calan SA] 120 mg PO DAILY 12/02/22 12/02/22 predniSONE [Deltasone] 10 mg PO DAILY 12/02/22 12/02/22 - Allergies Allergies/Adverse Reactions: Allergies Allergy/AdvReac Type Severity Reaction Status Date / Time Sulfa (Sulfonamide Allergy Unknown Verified 12/02/22 07:05 Antibiotics) diltiazem [From Cartia XT] AdvReac Itching Verified 12/02/22 07:05 ephedrine AdvReac Unknown Verified 12/02/22 07:05 Ephedrine Analogues AdvReac Unknown Verified 12/02/22 07:05 metoprolol AdvReac Anxiety Verified 12/02/22 07:05 Review of Systems - Constitutional Constitutional: reports: Fatigue, Weakness, Poor appetite, Other (Lethargic and sleeps alot the past week) - Respiratory Respiratory: reports: Cough, Snoring (Uses CPAP, but has not had it for 1 week, awaiting a new unit), SOB at rest (Uses O2 24/7. The CPAP machine broke 1 week ago and a new unit has not yet arrived so she has only used oxygen at night, not her CPAP.) - Gastrointestinal Gastrointestinal: reports: Bloody stools - Neurological Neurological: reports: General weakness, Other (Speaks very little, likes to writte instead) - All Other Systems All Other Systems: reports: Reviewed and negative (All nformation obtained from daughter Keri, when she arrived at bedside) Exam - Vital Signs Vital Signs: Vital Signs x48h Temp Pulse Pulse Resp BP BP Pulse Ox 12/02/22 10:46 36.1 C L 71 20 113/84 H 100 12/02/22 10:42 88 20 116/67 96 12/02/22 10:22 36.1 C L 79 18 119/86 H 100 12/02/22 10:19 36.4 C L 75 18 112/80 99 12/02/22 09:28 36.2 C L 89 17 104/77 100 12/02/22 08:21 36.2 C L 78 18 112/75 99 12/02/22 08:15 36.2 C L 77 19 103/69 100 12/02/22 08:01 36.4 C L 82 18 106/72 96 12/02/22 06:15 36.5 C 93 18 114/83 H 100 O2 Flow Rate 12/02/22 10:46 4 12/02/22 10:42 4 12/02/22 10:22 4 12/02/22 10:19 4 12/02/22 09:28 4 12/02/22 08:21 4 12/02/22 08:15 6 12/02/22 08:01 4 12/02/22 06:15 - Physical Exam General Appearance: positive: No acute distress, Alert Eyes Bilateral: positive: Normal inspection, Other ([place]) ENT: positive: ENT inspection nml, No signs of dehydration Neck: positive: Nml inspection, No JVD Respiratory: positive: No respiratory distress, Breath sounds nml Cardiovascular: positive: Regular rate & rhythm, No murmur Abdomen: positive: Non-tender, Nml bowel sounds, No distention Skin: positive: Warm, Dry, Pallor Extremities: positive: Non-tender, No pedal edema Neurologic/Psychiatric: positive: Motor nml, Other (She is only nodding her head answering my questions, she has not spoken to answer me. Is [place]) Conclusion/Plan - Problem List (1) Symptomatic anemia Conclusion/Plan: Plan: Continue with the second unit if blood to transfuse Check hemoglobin this evening and then also tomorrow morning Goal Hgb will be 7 We will check iron panel to see if she needs IV iron and oral iron prescribed. When I told tthe daughter at bedside that, she said they have cartons of OTC iron which the pt takes (however, it was not listed on her reconciled med list). (2) Fall at home Conclusion/Plan: Given the severe anemia, she is probably volume depleted and orthostatic, as the cause for the fall Plan: Check orthostatic vital signs Hold Verapamil until we assure there is no orthostasis Consider PT and OT evaluations (3) Bleeding hemorrhoid Conclusion/Plan: As per history, and she has refused hemorrhoidectomy. Plan: We will monitor how much blood she is losing in her BMs (4) Anticoagulant long-term use Conclusion/Plan: She takes a DOAC. Plan: Given her history of recurrent severe GI bleeding, the Eliquis is stopped now and should be stopped permanently In its place, for A-fib stroke prophylaxis 1 or 2 baby aspirin daily will be advised. I updated the daughter at bedside with this plan and she is agreeable (5) Chronic atrial fibrillation Conclusion/Plan: Plan: Cont her Verapamil, for rate control, unless she has marked orthostasis. Given her history of recurrent severe GI bleeding, the Eliquis is stopped now and should be stopped permanently. In its place, for A-fib stroke prophylaxis, 1 baby aspirin daily will be advised. I reviewed plan this with the daughter at bedside today who is agreeable. (6) Pulmonary fibrosis Conclusion/Plan: As per history. Plan: Continue her supplemental O2 Continue her usual pulmonary medications including "patient's own med" of the ones we do not have on formulary. (7) MORENITA on CPAP Conclusion/Plan: 1 week ago the CPAP unit was not working. They are awaiting a new replacement updated unit and the hold-up is Medicare authorization. So the patient has only been getting oxygen /, not able to use a CPAP unit with oxygen bled into it at night like she used to have Plan: I will order the hospital BIPAP unit to be used while she is here - Lab Results Fish Bones: 12/03/22 04:15 12/03/22 04:15 - Diagnostic Imaging Results Diagnostic Imaging Results: positive: Final report reviewed
--- NOTE | 2022-12-02 12:53 | PHARMACY PROGRESS NOTE ---
- Best Possible Medication History Admit Date and Time: 12/02/22 1131 Processed by: Pharmacy Medication History completed: Yes Patient Interview: Pt unable to participate Secondary Source(s): Other family member, Pharmacy records, Insurance records MEDICATION LIST WAS GIVEN TO NURSING IN ER BY PATIENTS DAUGHTER AND CONFIRMED BY PHARMACY WITH PATIENT CAREGIVER AFTER ADMISSION As the person ultimately responsible for medication therapy, providers are able to order a medication from an existing home medication list in [facility] via the "Reconcile Routine" prior to Confirmation of that medication by medical support assistant. Such practice is discouraged except when the physician, in their clinical judgment, deems that a medical need exists for a medication without regard to previous use.
[2022-12-02] MEDS: SILDENAFIL CITRATE PO SCH ×2 (13:55→21:56)
[2022-12-02] MEDS: [UNRECOGNIZED DRUG - OTHER] PR SCH ×3 (13:56→21:57)
[2022-12-02] MEDS: WITCH HAZEL PR SCH ×3 (13:56→21:57)
[2022-12-02] MEDS: PHENYLEPHRINE HCL PR SCH ×3 (13:56→21:57)
[2022-12-02] MEDS: SODIUM CHLORIDE FLUSH 0.9% 10 ML SYRINGE IVP SCH (19:27)
[2022-12-02] MEDS: BENZONATATE 200 MG PO PRN ×2 (19:27→22:03)
[2022-12-02] MEDS ORDERED: MONTELUKAST 10 MG TABLET PO SCH (21:00)
[2022-12-02] MEDS ORDERED: NINTEDANIB ESYLATE 150 MG PO SCH (21:00)
[2022-12-02] MEDS: PANTOPRAZOLE 40 MG TABLET PO SCH (21:56)
[2022-12-03] MEDS: guaiFENesin/DEXTROMETHORPHAN 10 ML UDC PO PRN ×4 (00:22→13:15)
[2022-12-03] MEDS: SODIUM CHLORIDE FLUSH 0.9% 10 ML SYRINGE IVP SCH ×2 (00:23→09:07)
[2022-12-03 05:11] LABS: BASOPHILS % (AUTO) 0.6 %; EOSINOPHILS # (AUTO) 0.1 10^3/uL (0.0-0.7); EOSINOPHILS % (AUTO) 2.6 %; HGB - HEMOGLOBIN 7.7 g/dL (12.0-16.0); LYMPHOCYTES # (AUTO) 0.9 10^3/uL (1.5-3.5); LYMPHOCYTES % (AUTO) 17.1 %; MEAN CORPUSCULAR HEMOGLOBIN 24.3 pg (27.0-31.0); MEAN CORPUSCULAR HGB CONC 29.6 g/dL (32.0-36.0); MONOCYTES # (AUTO) 0.5 10^3/uL (0.0-1.0); MONOCYTES % (AUTO) 9.9 %; NEUTROPHILS # (AUTO) 3.8 10^3/uL (1.5-6.6); NEUTROPHILS % (AUTO) 69.6 %; NUCLEATED RED BLOOD CELLS AUTO 1.8 /100WBC; PLT - PLATELET COUNT 197 10^3/uL (130-450); RED BLOOD COUNT 3.17 10^6/uL (4.20-5.40); RED CELL DISTRIBUTION WIDTH 20.6 % (12.0-15.0); WHITE BLOOD COUNT 5.4 x10^3/uL (4.8-10.8)
[2022-12-03 05:32] LABS: CALCIUM 8.4 mg/dL (8.5-10.3); CREATININE 0.5 mg/dL (0.6-1.3); MAGNESIUM 1.5 mg/dL (1.7-2.3); PHOSPHORUS 2.4 mg/dL (2.5-5.0); POTASSIUM 3.6 mmol/L (3.5-4.5)
[2022-12-03] MEDS ORDERED: SILDENAFIL CITRATE PO SCH (06:00)
[2022-12-03] MEDS: BENZONATATE 200 MG PO PRN (06:06)
[2022-12-03] MEDS ORDERED: BENZONATATE 100 MG CAPSULE PO ONE (06:08)
[2022-12-03] MEDS ORDERED: LEVOTHYROXINE 125 MCG TABLET PO SCH (07:00)
[2022-12-03] MEDS ORDERED: BENZONATATE 100 MG CAPSULE PO PRN (07:52)
[2022-12-03] MEDS ORDERED: MAGNESIUM SULFATE 2 GRAM 2 GM/50 ML BAG IV ONE (08:15)
[2022-12-03] MEDS: GABAPENTIN 100 MG CAPSULE PO SCH ×2 (08:46→11:57)
[2022-12-03] MEDS: PANTOPRAZOLE 40 MG TABLET PO SCH ×2 (08:47→11:58)
[2022-12-03] MEDS: ASPIRIN EC 81 MG TABLET PO SCH ×2 (08:47→11:57)
[2022-12-03] MEDS ORDERED: CITALOPRAM HYDROBROMIDE 20 MG TABLET PO SCH (09:00)
[2022-12-03] MEDS ORDERED: OFEV PO SCH (09:00)
[2022-12-03] MEDS ORDERED: predniSONE 5 MG TABLET PO SCH (09:00)
[2022-12-03] MEDS ORDERED: VERAPAMIL ER 120 MG TABLET PO SCH (09:00)
[2022-12-03] MEDS: PHENYLEPHRINE HCL PR SCH (11:58)
[2022-12-03] MEDS: [UNRECOGNIZED DRUG - OTHER] PR SCH (11:58)
[2022-12-03] MEDS: WITCH HAZEL PR SCH (11:58)
--- NOTE | 2022-12-03 12:20 | Discharge Plan ---
Discharge Plan Problem Reviewed?: Yes Disposition: Home, Self Care Condition: Fair Prescriptions: Aspirin EC [Ecotrin] 81 mg PO DAILY #30 tab Diet: Regular Activity Restrictions: Activity as Tolerated Shower Restrictions: No Driving Restrictions: Yes Assistance Devices: Wheelchair, Walker Health Concerns: You were hospitalized to get blood transfusions and to evaluate why you fell. Your Eliquis should now be stopped, since you have bleeding that recurs and causes a dangerously low anemia, which adds to your weakness and added to that fall. In its place, take a coated baby aspirin daily. Keep the upcoming appointment with your Graphic Pre Press Trades Worker and Ambulance Officer to discuss this. Also, you were evaluated by a physical therapist and occupational therapist and it is advised that you have someone near you for "standby assistance" when you get up to transfer yourself, and that you use a walker, locked, to push off on, when you rise. When your oxygen level drops, try to remain calm, do deep breathing and the things you do to clear the [place], but realize it could take up to a min for your oxygen level to recover. Having a shorter hose from the oxygen machine will also help you. Plan of Treatment: As above. Care Goals: Improvement in symptoms and stabilization are the goals. Assessment: The patient understands the recommendations. No Smoking: If you smoke, Please STOP! Call for help.
--- NOTE | 2022-12-03 12:24 | DISCHARGE SUMMARY ---
Discharge Summary Admit Date: 12/02/22 Discharge Date: 12/03/22 Discharging Provider: Dr Dasia Major Primary Care Provider: Dr Duc Manrique Code Status: Attempt Resuscitation Condition at Discharge: Poor Discharge Disposition: 01 Home, Self Care - HPI History of Present Illness: This is an 86-year-old female with history of atrial fib on Eliquis, pulmonary fibrosis and pulmonary hypertension on sildenafil and on home oxygen and MORENITA on CPAP, history of recurrent bleeding hemorrhoids and she has refused hemorrhoidectomy, needs repeat transfusions. The patient has had endoscopy and colonoscopy and PillCam eval and the only findings were a bleeding hemorrhoid. She was offered hemorrhoidectomy but has refused this. The daughter said she wa s only off her Eliquis for 10 days when this occurred in August of this year. She has a Sheet Metal Layout Mechanic and Catalyst Plant Supervisor at , and has an appointment to see them both in the next few weeks. The patient was getting out of bed last night trying to get into her wheelchair and fell, landing on her rump. She did not lose consciousness. She has in-home 24-7 caregivers who heard the fall, called the daughter Keri (her DPOA), who advised calling EMS for lift assist. Ambulance arrived and vital signs at the scene were blood pressure 128/75, heart rate 105 in A-fib, and she was brought to the ER. Daughter arrived shortly after that and described that her caregivers have reported that there has more blood in her stool recently and the daughter noticed the patient is more pale and for the last 3 days has been more confused and mostly sleeping. Lab testing showed the hemoglobin to be 5.9 and she has been ordered to receive 2 units PRBCs, and 1 has been infused thus far. ER provider has discussed with the pt the need to stop taking Eliquis which the patient agrees. The patient underwent head CT and C-spine CT which did not show any evidence of trauma, there are degenerative changes of the spine and atrophy seen on brain imaging. The ED provider spoke to me about this patient to bring her in on the Hospitalist service and to continue to treat the symptomatic anemia and evaluate causes for the fall. I discussed the patient's CODE BLUE wishes with the daughter and she said her mother wants to be a Full Code. - HOSPITAL COURSE Hospital Course: (1) Symptomatic anemia She received the second unit of blood transfused. Then her Hgb jean paul to 8.5>> and was 7.7 at discharge. I planned on checking her iron panel to see if she needs IV iron and oral iron prescribed. But the daughter said they have cartons of OTC iron which the pt takes (however, it was not listed on her reconciled med list). (2) Fall at home Given the severe anemia, she was probably volume depleted and orthostatic, causing the fall. Her orthostatic vital signs were checked only once, right before discharge, were normal and her Verapamil was resumed. The daughter describes that she has been mostly in bed transferring to a wheelchair for the last several weeks. I discussed with the son at bedside, who is staying with her now for the next month, that she needs standby assistance for all standing and transferring, and would benefit from using her walker at bedside to use the handles for support. (3) Bleeding hemorrhoid As per history, and she has refused hemorrhoidectomy. I suspect she may also be a high surgical risk given the severe pulmonary fibrosis. There was no BRBPR here. (4) Anticoagulant long-term use She took Eliquis at home. Daughter summarized that Eliquis was stopped for only 10 days the last time she had a significant lower GI bleed several mos ago. Eliquis was advised to be stopped now and stopped permanently. In its place, for A-fib stroke prophylaxis, taking a baby aspirin daily was advised. The daughter agreed to this. The patient refused and wanted to resume her Eliquis. I then spent more time talking about bleeding risks with the patient and the son at bedside. I also advised that she see her Catalyst Plant Supervisor and have his/her input (5) Chronic atrial fibrillation We continued her Verapamil for rate control. Given her history of recurrent severe GI bleeding causing symptomatic anemia, the Eliquis was stopped. (6) Pulmonary fibrosis As per history and she is followed by a Sheet Metal Layout Mechanic. The patient was minimally communicative here. The daughter explained that when she talks, it sets off her cough. The patient prefers to communicate by writing. We continued her on supplemental O2 and on her usual pulmonary medications including "patient's own med" for the ones we do not have on formulary. (7) MORENITA on CPAP Daughter described in detail that 1 week ago the CPAP unit stopped working. The patient was only on her O2 at night and was awakening panicked with air hunger. They are awaiting a new replacement (updated) unit and the delay is for awaiting a Medicare authorization. I ordered the hospital BIPAP unit to be used while she was here, but she refused that. - ALLERGIES Allergies/Adverse Reactions: Allergies Allergy/AdvReac Type Severity Reaction Status Date / Time Sulfa (Sulfonamide Allergy Unknown Verified 12/02/22 07:05 Antibiotics) diltiazem [From Cartia XT] AdvReac Itching Verified 12/02/22 07:05 ephedrine AdvReac Unknown Verified 12/02/22 07:05 Ephedrine Analogues AdvReac Unknown Verified 12/02/22 07:05 metoprolol AdvReac Anxiety Verified 12/02/22 07:05 - MEDICATIONS Home Medications: Ambulatory Orders Medication Instructions Recorded Confirmed Levothyroxine [Synthroid] 150 mcg PO QDAC 11/15/15 12/02/22 Nintedanib Esylate [Ofev] 150 mg ORAL BID 08/21/19 12/02/22 Sildenafil Citrate 20 mg ORAL TID 08/21/19 12/02/22 Phenylephrine HCl/Witch [place]ed[place] 1 appful NE QID #2 unit 03/15/21 12/02/22 [Preparation H Cooling Gel] Benzonatate 200 mg PO TID PRN 12/02/22 12/02/22 Citalopram Hydrobromide [Celexa] 20 mg PO DAILY 12/02/22 12/02/22 Gabapentin [Neurontin] 400 mg PO DAILY 12/02/22 12/02/22 Ipratropium [place] 2 spr NS BID 12/02/22 12/02/22 Montelukast [Singulair] 10 mg PO QPM 12/02/22 12/02/22 Pantoprazole Sodium 1 tab PO BID 12/02/22 12/02/22 Verapamil ER [Calan SA] 120 mg PO DAILY 12/02/22 12/02/22 predniSONE [Deltasone] 10 mg PO DAILY 12/02/22 12/02/22 Aspirin EC [Ecotrin] 81 mg PO DAILY #30 tab 12/03/22 - PHYSICAL EXAM AT DISCHARGE General Appearance: positive: No acute distress, Alert Eyes Bilateral: positive: Normal inspection, EOMI ENT: positive: ENT inspection nml, No signs of dehydration Neck: positive: Nml inspection, No JVD Respiratory: positive: No respiratory distress (on O2 via n.c.), Other (Poor air movement in all lung [place] but no rales or wheezes.) Cardiovascular: positive: Irregularly irregular Abdomen: positive: Non-tender, Nml bowel sounds, No distention Skin: positive: Warm, Dry Extremities: positive: Non-tender, No pedal edema Neurologic/Psychiatric: positive: Oriented x3, Motor nml, Other (Has generalized weakness and appears fatigued) - LABS Result Diagrams: 12/03/22 04:15 12/03/22 04:15 - DIAGNOSTIC IMAGING Diagnostic Imaging Results: Final report reviewed - FOLLOW UP Follow Up: See PCP and keep upcoming Cardiology appointment and Pulmonary appointment. - TIME SPENT Time Spent in Discharge (Minutes): 45
[2022-12-03 13:23] VITALS: BP 109/67; O2SAT 20
[2022-12-03] MEDS ORDERED: SILDENAFIL PO SCH (14:00)
== END 2022-12-03 13:30 | disposition home or self-care (01) ==
LOC: EDBD → ED 06:11 → MS2 11:31
PROVIDERS: ADMIT Internal Medicine; ATTEND Internal Medicine
DX: D64.9 Anemia, unspecified (principal); K64.9 Unspecified hemorrhoids; J84.10 Pulmonary fibrosis, unspecified; J90 Pleural effusion, not elsewhere classified; I10 Essential (primary) hypertension; E03.9 Hypothyroidism, unspecified; K21.9 Gastro-esophageal reflux disease without esophagitis; G47.33 Obstructive sleep apnea (adult) (pediatric); I48.20 Chronic atrial fibrillation, unspecified; H91.90 Unspecified hearing loss, unspecified ear; M50.321 Other cervical disc degeneration at C4-C5 level; M48.02 Spinal stenosis, cervical region; Z79.01 Long term (current) use of anticoagulants; Z79.52 Long term (current) use of systemic steroids; Z79.890 Hormone replacement therapy; Z79.899 Other long term (current) drug therapy; Z91.81 History of falling; Z99.81 Dependence on supplemental oxygen
CPT/HCPCS: 36415; 36430; 70450; 72125; 80048; 80053; 83540; 83735; 84100; 84466; 85018; 85025; 86850; 86900; 86901; 86920; 96365; 97161; 97165; 99291; A9270; G0378; J7512; J8499; P9016